=== PATIENT | female | born 1965 | race Caucasian/White ===

== ENCOUNTER 2016-06-26 06:50 | Emergency (ER) | payer BC ==
[~2016-06-26] VITALS: Ht 175.3 cm; Wt 104.3 kg
[~2016-06-26 06:50] MED LIST: AZIT250T6 PO; BENZ200C39 PO; PRED50TA PO; PROAIR HFA8.5 GM INH
--- NOTE | 2016-06-26 08:06 | PHYS DOC ---
Past Medical History Past Medical History: GERD, High Cholesterol Past Surgical History: Cholecystectomy Additional Past Surgical Histo: L KNEE, R HAND, HERNIA, D&C Alcohol Use: Occasionally Drug Use: None Adult General Chief Complaint Chief Complaint: FOOT INJURY PAIN [facility] Patient is a 51 year old female who presents with left foot pain after hitting it on the bedpost 2 weeks ago. reports increased pain with weight bearing. No interventions prior to arrival. Pain 11/18 Review of Systems Review of Systems Constitutional: Denies fever or chills Eyes: Denies change in visual acuity, redness, or eye pain HENT: Denies nasal congestion or sore throat Respiratory: Denies cough or shortness of breath Cardiovascular: No additional information not addressed in HPI GI: Denies abdominal pain, nausea, vomiting, bloody stools or diarrhea : Denies dysuria or hematuria Musculoskeletal: Left foot pain 2 wks Integument: Denies rash or skin lesions Neurologic: Denies headache, focal weakness or sensory changes Endocrine: Denies polyuria or polydipsia [] Current Medications Current Medications Current Medications Medications (Trade) Dose Ordered Sig/Arin Start Time Stop Time Status Last Admin Dose Admin Ibuprofen (Motrin) 800 mg 1X ONCE 06/26/16 08:15 06/26/16 08:16 DC 06/26/16 08:31 800 MG Allergies Allergies Allergies Coded Allergies Type Severity Reaction Last Updated Verified cimetidine Allergy Unknown 04/28/16 No Physical Exam Physical Exam Constitutional: Well developed, well nourished, no acute distress, non-toxic appearance. HENT: Normocephalic, atraumatic, bilateral external ears normal, oropharynx moist, no oral exudates, nose normal. Eyes: PERRLA, EOMI, conjunctiva normal, no discharge. Neck: Normal range of motion, no tenderness, supple, no stridor. Cardiovascular:Heart rate regular rhythm, no murmur Lungs & Thorax: Bilateral breath sounds clear to auscultation Abdomen: Bowel sounds normal, soft, no tenderness, no masses, no pulsatile masses. Skin: Warm, dry, no erythema, no rash. Back: No tenderness, no CVA tenderness. Extremities: No cyanosis, no clubbing, ROM intact, no edema. Tenderness dorsal surface 3rd, 4th, 5th metatarsal. No ecchymosis, deformity, erythema. >2sec DP. Neurologic: Alert and oriented X 3, normal motor function, normal sensory function, no focal deficits noted. Psychologic: Affect normal, judgement normal, mood normal. Current Patient Data Vital Signs Vital Signs Date Time Temp Pulse Resp B/P Pulse Ox O2 Delivery O2 Flow Rate FiO2 06/26/16 09:49 72 18 130/81 97 Room Air 06/26/16 08:00 97.8 97.8 EKG EKG [] Radiology/Procedures Radiology/Procedures [] Impressions: 1. Left foot sprain Course & Med Decision Making Course & Med Decision Making Pertinent Labs and Imaging studies reviewed. (See chart for details) [] Dragon Disclaimer Dragon Disclaimer This electronic medical record was generated, in whole or in part, using a voice recognition dictation system. Departure Departure Impression: Primary Impression: Sprain of foot, left Disposition: 01 HOME, SELF-CARE Condition: STABLE Referrals: GIANFRANCO LOPEZ (PCP) Patient Instructions: Foot Contusion, [id number], Foot Sprain-Brief Additional Instructions: Follow up with your doctor in 1-2 days. Wear cathy wrap for comfort. Return if problems or concerns Problem Qualifiers Primary Impression: Sprain of foot, left Encounter type: initial encounter Qualified Code: S93.602A - Unspecified sprain of left foot, initial encounter PHILL MERCHANT APRN Jun 26, 2016 08:06
[2016-06-26] MEDS ORDERED: IBUPROFEN 800 MG TABLET. PO ONE (08:15)
--- NOTE | 2016-06-26 08:35 | RAD ---
Left foot, 3 views, 06/26/2016: History: Foot pain, injury There are mild degenerative changes at the first MTP joint. No acute fracture or dislocation is identified. There is a moderate sized inferior calcaneal spur. Moderate subcutaneous edema is present about the foot. IMPRESSION: No acute bony abnormality is detected.
[2016-06-26 09:49] VITALS: BP 130/81
== END 2016-06-26 09:55 | disposition home or self-care (01) ==
LOC: ER 06:50
DX: S93.602A Unspecified sprain of left foot, initial encounter (principal); E78.00 Pure hypercholesterolemia, unspecified; Z88.8 Allergy status to other drugs, medicaments and biological substances; W22.8XXA Striking against or struck by other objects, initial encounter; Y93.89 Activity, other specified; Y92.89 Other specified places as the place of occurrence of the external cause; Y99.8 Other external cause status
CPT/HCPCS: 73630; 99284

== ENCOUNTER 2017-04-13 13:37 | Emergency (ER) | payer BC ==
[~2017-04-13] VITALS: Ht 175.3 cm; Wt 104.3 kg
[~2017-04-13 13:37] MED LIST changes: -BENZ200C39 PO; +BENZ200C47 PO
[2017-04-13 13:51] VITALS: BP 136/94
--- NOTE | 2017-04-13 13:55 | PHYS DOC ---
Past Medical History Past Medical History: GERD, High Cholesterol Additional Past Medical Histor: vertigo Past Surgical History: Cholecystectomy Additional Past Surgical Histo: L KNEE, R HAND, HERNIA, D&C-ablation, canal repair Alcohol Use: Occasionally Drug Use: None Adult General Chief Complaint Chief Complaint: COUGH HPI HPI Patient is a 52 year old female presents the ED complaining of cough 1 week. Patient states that she was seen at the [facility] and given some antibiotics and inhaler with no improvement. Describes the pain as sharp. Rates the pain as 7/10. Associated symptoms include rhinorrhea and sore throat. Denies headache, chest pain, shortness of breath, dizziness, nausea/vomiting, abdominal pain, weakness. Review of Systems Review of Systems Constitutional: Denies fever or chills [] Eyes: Denies change in visual acuity, redness, or eye pain [] HENT: Complains of sore throat and rhinorrhea. [] Respiratory: Complains of cough. Denies shortness of breath [] Cardiovascular: No additional information not addressed in HPI [] GI: Denies abdominal pain, nausea, vomiting, bloody stools or diarrhea [] : Denies dysuria or hematuria [] Musculoskeletal: Denies back pain or joint pain [] Integument: Denies rash or skin lesions [] Neurologic: Denies headache, focal weakness or sensory changes [] Endocrine: Denies polyuria or polydipsia [] All other systems were reviewed and found to be within normal limits, except as documented in this note. Current Medications Current Medications Current Medications Medications (Trade) Dose Ordered Sig/Arin Start Time Stop Time Status Last Admin Dose Admin Methylprednisolone Sodium Succinate (SOLU-Medrol 125MG VIAL) 125 mg 1X ONCE 04/13/17 14:00 04/13/17 14:01 DC 04/13/17 14:02 125 MG Allergies Allergies Allergies Coded Allergies Type Severity Reaction Last Updated Verified cimetidine Allergy Unknown 04/28/16 No Physical Exam Physical Exam Constitutional: Well developed, well nourished, no acute distress, non-toxic appearance. [] HENT: Normocephalic, atraumatic, bilateral external ears normal, MILD PHARYNGEAL ERYTHEMA. oropharynx moist, no oral exudates, nose normal. [] Eyes: PERRLA, EOMI, conjunctiva normal, no discharge. [] Neck: Normal range of motion, no tenderness, supple, no stridor. [] Cardiovascular:Heart rate regular rhythm, no murmur [] Lungs & Thorax: Bilateral breath sounds clear to auscultation. DRY COUGH. [] Abdomen: Bowel sounds normal, soft, no tenderness, no masses, no pulsatile masses. [] Skin: Warm, dry, no erythema, no rash. [] Back: No tenderness, no CVA tenderness. [] Extremities: No tenderness, no cyanosis, no clubbing, ROM intact, no edema. [] Neurologic: Alert and oriented X 3, normal motor function, normal sensory function, no focal deficits noted. [] Psychologic: Affect normal, judgement normal, mood normal. [] Current Patient Data Vital Signs Vital Signs Date Time Temp Pulse Resp B/P (MAP) Pulse Ox O2 Delivery O2 Flow Rate FiO2 04/13/17 13:51 97.7 96 18 98 Room Air 97.7 EKG EKG [] Radiology/Procedures Radiology/Procedures PROCEDURE: CHEST PA & LATERAL CHEST PA LATERAL Clinical Indication: Cough with some difficulty breathing, recent diagnosis of pneumonia. Comparison: None. Technique: Frontal and lateral views of the chest are obtained. Findings: No focal consolidation, pleural effusion or pneumothorax is seen. Cardiomediastinal silhouette is within normal limits of size. Visualized osseous structures and overlying soft tissues demonstrate no acute finding. IMPRESSION: No focal consolidation to suggest pneumonia.[] Course & Med Decision Making Course & Med Decision Making Pertinent Labs and Imaging studies reviewed. (See chart for details) []Discussed imaging findings with patient. Patient improved. Vitals stable, no acute distress. Will treat with a zpak, prednisone and tessalon perles. Discussed follow-up with PCP in one to 2 days. Provided contact information/ education. Discussed reasons to return to the ED. Patient understands and agrees with plan. Dragon Disclaimer Dragon Disclaimer This electronic medical record was generated, in whole or in part, using a voice recognition dictation system. Departure Departure Impression: Primary Impression: Acute bronchitis Disposition: 01 HOME, SELF-CARE Condition: IMPROVED Referrals: GIANFRANCO LOPEZ (PCP) Patient Instructions: Acute Bronchitis Scripts Benzonatate (TESSALON PERLE) 100 Mg Capsule 1 CAP PO TID, #21 CAP Prov: ANNELISE YU 04/13/17 Prednisone (PREDNISONE) 20 Mg Tablet 2 TAB PO DAILY, #10 TAB Prov: ANNELISE YU 04/13/17 Azithromycin (AZITHROMYCIN TABLET) 250 Mg Tablet 1 PKG PO UD, #6 TAB Prov: ANNELISE YU 04/13/17 ANNELISE YU Apr 13, 2017 13:55
[2017-04-13] MEDS ORDERED: methylPREDNISolone SOD SUCC PF 125 MG/2 ML VIAL. IM ONE (14:00)
--- NOTE | 2017-04-13 14:38 | RAD ---
CHEST PA LATERAL Clinical Indication: Cough with some difficulty breathing, recent diagnosis of pneumonia. Comparison: None. Technique: Frontal and lateral views of the chest are obtained. Findings: No focal consolidation, pleural effusion or pneumothorax is seen. Cardiomediastinal silhouette is within normal limits of size. Visualized osseous structures and overlying soft tissues demonstrate no acute finding. IMPRESSION: No focal consolidation to suggest pneumonia.
[2017-04-13] MEDS ORDERED: PRED20TA PO (14:45)
[2017-04-13] MEDS ORDERED: BENZ100C PO (14:45)
[2017-04-13] MEDS ORDERED: AZIT250T6 PO (14:45)
== END 2017-04-13 14:45 | disposition home or self-care (01) ==
LOC: ER 13:37
DX: J20.9 Acute bronchitis, unspecified (principal); K21.9 Gastro-esophageal reflux disease without esophagitis; E78.00 Pure hypercholesterolemia, unspecified; Z90.49 Acquired absence of other specified parts of digestive tract; Z88.8 Allergy status to other drugs, medicaments and biological substances
CPT/HCPCS: 71020; 96372; 99284; J2930